=== PATIENT | female | born 1985 | race Caucasian/White ===

== ENCOUNTER 2021-01-19 09:55 | Outpatient (CLI) | payer SELFPAY | END 2021-01-19 09:56 | disposition EMS.NT | LOC: EMS 09:55 | DX: R55 Syncope and collapse (principal) ==

== ENCOUNTER 2023-11-06 07:50 | Outpatient (CLI) | payer OTHER ==
[~2023-11-06 07:50] MED LIST: GADOTERATE MEGLUMINE 2.5 MMOL/5 ML VIAL ONE; GADOTERATE MEGLUMINE 5 MMOL/10 ML VIAL ONE
[2023-11-06] MEDS ORDERED: GADOTERATE MEGLUMINE 5 MMOL/10 ML VIAL IVP ONE (09:22)
--- NOTE | 2023-11-06 10:56 | MRI Report ---
PROCEDURE: PELVIS W/WO INDICATIONS: HEAVY MENSTRUAL BLEEDING TECHNIQUE: Multiple sequences and planes were used to obtain magnetic resonance images of the pelvis before and after contrast administration. Contrast: IV contrast was used COMPARISON: None FINDINGS: Image quality: Good Lower abdomen: No evidence of bowel obstruction or pathologic ascites. There is a small amount pelvic free fluid which is probably physiologic. Bladder: Underdistended, unremarkable Reproductive organs: The uterus appears unremarkable. No discrete cervical mass. The endometrium is p rominent measuring 1.1 cm, which is within normal limits for age. Relatively homogenous internal sign al without suspicious enhancement. Normal thickness of the junctional zone. The myometrium also appea rs unremarkable. No significant fibroids. On precontrast T1-weighted images, no evidence of endometrioma or deep pelvic endometriosis deposits. The ovaries appear physiologic, with a probable corpus luteum cyst on the left currently. Rectum: Moderate colorectal fecal loading, particularly with a rectal stool ball. Vessels and lymph nodes: No pathologic lymphadenopathy by size criteria. No aneurysmal vessel identif ied. Pelvic wall: Unremarkable Bones: No acute or suspicious abnormality. IMPRESSION: Overall physiologic appearance of the reproductive organs for age. Clinical followup is recommended. If there is new or worsening clinical concern, reimaging and gynecologic consultation for direct visu alization could be considered. Reviewed by: Medardo Dolan MD on 11/06/2023 10:55 AM [facility] Approved by: Medardo Dolan MD on 11/06/2023 10:55 AM [facility] Station ID: [id number]
== END 2023-11-06 07:51 | disposition home or self-care (01) ==
LOC: DI 07:50
PROVIDERS: ATTEND Nurse Practitioner Family
DX: N92.0 Excessive and frequent menstruation with regular cycle (principal)
CPT/HCPCS: 72197; A9575

== ENCOUNTER 2024-08-12 14:44 | Outpatient (CLI) | payer OTHER ==
[2024-08-12 18:01] LABS: HCT - HEMATOCRIT 36.3 % (37.0-47.0); HGB - HEMOGLOBIN 12.6 g/dL (12.0-16.0); MEAN CORPUSCULAR HEMOGLOBIN 32.1 pg (27.0-31.0); MEAN CORPUSCULAR HGB CONC 34.7 g/dL (32.0-36.0); MEAN CORPUSCULAR VOLUME 92.6 fL (81.0-99.0); MEAN PLATELET VOLUME 10.1 fL (7.9-10.8); RED BLOOD COUNT 3.92 10^6/uL (4.20-5.40); RED CELL DISTRIBUTION WIDTH 11.8 % (12.0-15.0); WHITE BLOOD COUNT 7.2 x10^3/uL (4.8-10.8)
[2024-08-12 18:16] LABS: THYROID STIMULATING HORMONE 1.4 uIU/mL (0.34-5.60)
[2024-08-12 18:22] LABS: FERRITIN 22.6 ng/mL (11.0-306.8)
[2024-08-12 20:44] LABS: ESTIMATED AVERAGE GLUCOSE 100 mg/dL (70-100); HEMOGLOBIN A1c% 5.1 % (4.27-6.07)
== END 2024-08-12 14:45 | disposition home or self-care (01) ==
LOC: LAB.N 14:44
PROVIDERS: ATTEND Nurse Practitioner
DX: N92.1 Excessive and frequent menstruation with irregular cycle (principal)
CPT/HCPCS: 36415; 82728; 83036; 84436; 84443; 84480; 85027